=== PATIENT | female | born 2000 | race Caucasian/White ===

== ENCOUNTER 2018-03-22 22:12 | Emergency (ER) | payer OTHER ==
[2018-03-22] MEDS ORDERED: PROMETHAZINE HCL 25 MG/ML INJ ONE (22:40)
[2018-03-22] MEDS ORDERED: NS 1,000 ML IV ONE (22:41)
[2018-03-22] MEDS ORDERED: PROMETHAZINE HCL 25 MG/ML INJ IVP ONE (22:41)
[2018-03-22] MEDS ORDERED: PANTOPRAZOLE SODIUM 40 MG VIAL IVP ONE (22:41)
--- NOTE | 2018-03-22 22:41 | EDPHY ---
General Time Seen by Provider: 03/22/18 22:28 Narrative: CHIEF COMPLAINT: Abdominal pain, blood in stools HISTORY OF PRESENT ILLNESS: Patient presents by private vehicle with complaints of abdominal discomfort, blood in stools and accidentally taking too much Excedrin earlier today. She says she has a recent tonsillitis, which is nearly resolved. She is still taking Excedrin for general discomfort for URI type infection. She took 2 Excedrin migraine at 11am, and she accidentally took 2 more at 5pm. She denies doing so with intent to harm herself. She states that at 8pm she had a bowel movement with blood in the stool. Nonpainful bowel movement. She has had no fever, constipation, diarrhea. No vomiting. Single episode of bloody stool. No recent trauma or injury. No urinary complaints. No hematuria. No bleeding from either side. No anticoagulants other than the the acetaminophen and aspirin in the Excedrin. No other associated complaints or modifying factors. REVIEW OF SYSTEMS: 10 systems were reviewed and negative with the exception of the elements mentioned in the history of present illness. PCP: [facility] SPECIALISTS: Noncontributory PAST MEDICAL HISTORY: Recent tonsillitis PAST SURGICAL HISTORY: No surgical history SOCIAL HISTORY: Nonsmoker. [employer] student. FAMILY HISTORY: Noncontributory EXAMINATION: Vitals: Triage VS reviewed General Appearance: Alert, no distress Head: normocephalic, atraumatic Eyes: Pupils equal and round, no conjunctival pallor or injection ENT, Mouth: Mucous membranes moist. Uvula is midline. Airway is widely patent with no erythema edema. No exudate. No trismus. No bleeding of the gumline Neck: Normal inspection, supple, non-tender Respiratory: Lungs are clear to auscultation Cardiovascular: Regular rate and rhythm. No murmur Gastrointestinal: Abdomen is soft and nontender. No tympany. no rigidity. No guarding. No CVA tenderness. Bowel sounds present. Back: non-tender, no bony abnormalities Neurological: A&O, nonfocal, normal gait Skin: Warm and dry, no rash Extremities: Nontender, no pedal edema Psychiatric: Mood and affect normal. denies suicidal ideation DIFFERENTIAL DIAGNOSES: Including but not limited to gastritis, upper GI bleed, lower GI bleed, hemorrhoid, accidental overdose, pancreatitis, hepatitis, cholecystitis, cholelithiasis MDM: 10:30 p.m. Epigastric discomfort with some nausea and 1 episode of blood in her stool earlier today. Her concern is that she accidentally took an extra 2 pills of her Excedrin migraine, which contain acetaminophen and aspirin. She denies doing this intentionally. She is in no acute distress. Mildly tachycardic, thus and IV will be placed and we will administer IV fluid. Laboratory studies will be obtained. I will check a Tylenol and aspirin level. She is resting comfortably. 11:15 p.m. Laboratory studies returned well within normal limits. Negative acetaminophen level. Salicylate level is within normal limits. She has not had any Excedrin since 5:00 p.m.. She has no abdominal pain at this time. She has received IV fluid and IV promethazine and she is feeling much better. She would like to try and eat something. We will try crackers and water. 11:30 p.m. Patient has tolerated crackers and water without difficulty. She would like to go home. We discussed increase fluid intake and promethazine as needed every 8 hr. We discussed avoidance of Excedrin medication for the next 24 hr. We discussed follow up with [facility] and with [facility] for further care. emergency department cautions for any return of bleeding, consistent bleeding, chest pain, shortness of breath, lightheadedness, dizziness or bleeding from other sites. Her vital signs have normalized, heart rate currently 80 beats per minute. She is in no acute distress. She is watching movies on the laptop and would like to go home. Discharged home stable condition. SUPERVISION: Patient was independently examined, but I discussed the case with my secondary supervising physician Dr. Parish CONSULTATION: None - History Smoking Status: Never smoked - Objective Vital Signs: Initial Vital Signs Temperature (C) 97.7 F 03/22/18 22:19 Heart Rate 110 H 03/22/18 22:19 Respiratory Rate 16 03/22/18 22:19 Blood Pressure 115/74 03/22/18 22:19 O2 Sat (%) 100 03/22/18 22:19 O2 Delivery Mode Room Air Allergies/Adverse Reactions: No Known Allergies Allergy (Unverified 03/22/18 22:17) Home Medications: Medication Instructions Recorded Excedrin Extra Strength Caplet 03/22/18 Mucinex 03/22/18 PENICILLIN V POTASSIUM 03/22/18 Laboratory Results: Laboratory Results 03/22/18 22:43 03/22/18 22:43 03/22/18 03/22/18 03/22/18 22:43 22:43 22:43 WBC 7.15 10^3/uL 10^3/uL (3.80-9.50) RBC 4.60 10^6/uL 10^6/uL (4.18-5.33) Hgb 14.4 g/dL g/dL (12.6-16.3) Hct 40.5 % % (38.0-47.0) MCV 88.0 fL fL (81.5-99.8) MCH 31.3 pg pg (27.9-34.1) MCHC 35.6 g/dL g/dL (32.4-36.7) RDW 11.9 % % (11.5-15.2) Plt Count 332 10^3/uL 10^3/uL (150-400) MPV 8.8 fL fL (8.7-11.7) Neut % (Auto) 55.0 % % (39.3-74.2) Lymph % (Auto) 35.8 % % (15.0-45.0) Curry % (Auto) 7.3 % % (4.5-13.0) Eos % (Auto) 0.8 % % (0.6-7.6) Baso % (Auto) 0.7 % % (0.3-1.7) Nucleat RBC Rel Count 0.0 % % (0.0-0.2) Absolute Neuts (auto) 3.93 10^3/uL 10^3/uL (1.70-6.50) Absolute Lymphs (auto) 2.56 10^3/uL 10^3/uL (1.00-3.00) Absolute Monos (auto) 0.52 10^3/uL 10^3/uL (0.30-0.80) Absolute Eos (auto) 0.06 10^3/uL 10^3/uL (0.03-0.40) Absolute Basos (auto) 0.05 10^3/uL 10^3/uL (0.02-0.10) Absolute Nucleated RBC 0.00 10^3/uL 10^3/uL (0-0.01) Immature Gran % 0.4 % % (0.0-1.1) Immature Gran # 0.03 10^3/uL 10^3/uL (0.00-0.10) Sodium 139 mEq/L mEq/L (135-145) Potassium 3.3 mEq/L mEq/L (3.3-5.0) Chloride 104 mEq/L mEq/L (97-110) Carbon Dioxide 22 mEq/l mEq/l (22-31) Anion Gap 13 mEq/L mEq/L (6-14) BUN 15 mg/dL mg/dL (7-23) Creatinine 0.6 mg/dL mg/dL (0.6-1.0) Estimated GFR > 60 Glucose 96 mg/dL mg/dL (70-100) Calcium 9.8 mg/dL mg/dL (8.5-10.4) Total Bilirubin 0.3 mg/dL mg/dL (0.1-1.4) Conjugated Bilirubin 0.2 mg/dL mg/dL (0.0-0.5) Unconjugated Bilirubin 0.1 mg/dL mg/dL (0.0-1.1) AST 20 IU/L IU/L (14-46) ALT 24 IU/L IU/L (9-52) Alkaline Phosphatase 63 IU/L IU/L (38-126) Total Protein 7.3 g/dL g/dL (6.3-8.2) Albumin 4.5 g/dL g/dL (3.5-5.0) Lipase 73 IU/L IU/L (23-300) Beta HCG, Qual NEGATIVE Salicylates 3.3 mg/dL mg/dL (2.0-20.0) Acetaminophen < 10 mcg/mL L mcg/mL (10-30) Medications Given: Discontinued Medications Sodium Chloride (Ns) 1,000 mls @ 0 mls/hr IV EDNOW ONE; Wide Open PRN Reason: Protocol Stop: 03/22/18 22:42 Last Admin: 03/22/18 22:46 Dose: 1,000 mls Pantoprazole Sodium (Protonix) 40 mg IVP EDNOW ONE Stop: 03/22/18 22:42 Last Admin: 03/22/18 22:49 Dose: 40 mg Promethazine HCl (Phenergan) 12.5 mg IVP EDNOW ONE Stop: 03/22/18 22:42 Last Admin: 03/22/18 22:46 Dose: 12.5 mg Departure - Departure Disposition: Home, Routine, Self-Care Clinical Impression: Blood in stool Acute gastritis Qualifiers: Gastritis type: unspecified gastritis Gastritis bleeding: with bleeding Qualified Code(s): K29.01 - Acute gastritis with bleeding Condition: Good Instructions: Promethazine (By mouth), Gastritis (ED), Rectal Bleeding (ED) Additional Instructions: 1. 25 mg of Promethazine as needed by mouth for nausea every 6-8 hours. 2. Increase her fluid intake for the next 24 hr 3. Avoid use of Excedrin for the next 24 hr 4. Follow up with [facility] at 5. Contact the on-call [facility] p[facility] for outpatient follow-up 6. Return to emergency department for further bleeding, abdominal pain, fever, constipation or diarrhea Referrals: [facility] [Other] - As per Instructions [facility],. [Clinic] - As per Instructions Shelby Montesinos MD [Medical Doctor] - As per Instructions Stand Alone Forms: School Excuse
[2018-03-22 22:53] LABS: PLATELET COUNT 332 10^3/uL (150-400)
[2018-03-22] MEDS ORDERED: PROMETHAZINE 25 MG PREPACK #4 BTL TAKEHOME ONE (23:29)
[2018-03-22 23:37] VITALS: BP 137/67
== END 2018-03-22 23:42 | disposition home or self-care (01) ==
DX: K92.1 Melena (principal)
CPT/HCPCS: 96374; G0480; J2550